=== PATIENT | female | born 1945 | race Caucasian/White ===

== ENCOUNTER 2023-04-12 08:24 | Day surgery (SDC) | payer MEDICARE ==
[2023-04-12] MEDS ORDERED: LIDOCAINE HCL 2% 100 MG/5 ML IJ ONE (08:25)
[2023-04-12] MEDS ORDERED: DIPRIVAN 200 MG/20 ML IV ONE (10:02)
--- NOTE | 2023-04-12 10:31 | XRAY ---
Indication: Right C2-C4 MBB. Intraoperative fluoroscopy provided for 10 seconds. 2 digital spot images submitted for interpretation demonstrate posterior needle tip projecting over the expected right C2-C4 nerve roots. Correlate with intraoperative findings/report.
--- NOTE | 2023-04-12 11:53 | XRAY ---
10 seconds of fluoroscopy was used in surgery for a right C2-C4 MBB.
[2023-04-12] MEDS ORDERED: Lactated Ringers 1,000 ML IV ONE (13:34)
== END 2023-04-12 10:22 | disposition home or self-care (01) ==
LOC: SDC-PAIN 08:24
PROVIDERS: ATTEND Psychiatry & Neurology Pain Medicine
DX: M47.812 Spondylosis without myelopathy or radiculopathy, cervical region (principal); E11.9 Type 2 diabetes mellitus without complications
CPT/HCPCS: 64490; 64491; 72040; 77002; 82947; J2704

== ENCOUNTER 2023-06-08 07:28 | Day surgery (SDC) | payer MEDICARE ==
[2023-06-08] MEDS ORDERED: XYLOCAINE 1% HCL 20 ML MDV IJ ONE (07:29)
[2023-06-08] MEDS ORDERED: BUPIVACAINE 0.5% VIAL IJ ONE (07:29)
[2023-06-08] MEDS ORDERED: Decadron 4 MG INJ IV ONE (07:29)
[2023-06-08] MEDS ORDERED: DIPRIVAN 200 MG/20 ML IV ONE (08:51)
[2023-06-08] MEDS ORDERED: Lactated Ringers 1,000 ML IV ONE (09:17)
--- NOTE | 2023-06-08 10:56 | XRAY ---
Indication: Right C2-C4 RFA. Intraoperative fluoroscopy provided for 21 seconds. 3 digital spot images submitted for interpretation demonstrates posterior needle tips projecting over the expected right C2-C4 nerve roots. Correlate with intraoperative findings/report.
--- NOTE | 2023-06-08 12:32 | XRAY ---
21 seconds of fluoroscopy was used in surgery for a right C2-C4 RFA.
== END 2023-06-08 09:55 | disposition home or self-care (01) ==
LOC: SDC-PAIN 07:28
PROVIDERS: ATTEND Psychiatry & Neurology Pain Medicine
DX: M47.812 Spondylosis without myelopathy or radiculopathy, cervical region (principal); E11.9 Type 2 diabetes mellitus without complications
CPT/HCPCS: 64633; 64634; 72040; 77002; 82947; J1100; J2704

== ENCOUNTER 2023-09-13 07:43 | Day surgery (SDC) | payer MEDICARE ==
[2023-09-13] MEDS ORDERED: LIDOCAINE HCL 2% 100 MG/5 ML IJ ONE (07:44)
[2023-09-13] MEDS ORDERED: DIPRIVAN 200 MG/20 ML IV ONE (09:42)
--- NOTE | 2023-09-13 12:02 | XRAY ---
Indication: Bilateral L4-S1 MBB. Intraoperative fluoroscopy provided for 17 seconds. Single digital spot image submitted for interpretation demonstrates posterior needle tips projecting over the expected left and right L4-S1 nerve roots. Correlate with intraoperative findings/report.
--- NOTE | 2023-09-13 12:08 | XRAY ---
17 seconds of fluoroscopy was used in surgery for a bilateral L4-S1 MBB.
[2023-09-13] MEDS ORDERED: Lactated Ringers 1,000 ML IV ONE (14:20)
== END 2023-09-13 10:15 | disposition home or self-care (01) ==
LOC: SDC-PAIN 07:43
PROVIDERS: ATTEND Psychiatry & Neurology Pain Medicine
DX: M47.816 Spondylosis without myelopathy or radiculopathy, lumbar region (principal); E11.9 Type 2 diabetes mellitus without complications; Z79.899 Other long term (current) drug therapy
CPT/HCPCS: 64493; 64494; 72020; 77002; 82947; J2704

== ENCOUNTER 2023-11-29 09:17 | Day surgery (SDC) | payer MEDICARE ==
[2023-11-29] MEDS ORDERED: BUPIVACAINE 0.5% VIAL IJ ONE (09:18)
[2023-11-29] MEDS ORDERED: Depo-Medrol 40 MG/ML IM ONE (09:18)
[2023-11-29] MEDS ORDERED: DIPRIVAN 200 MG/20 ML IV ONE (11:07)
[2023-11-29] MEDS ORDERED: Lactated Ringers 1,000 ML IV ONE (11:12)
--- NOTE | 2023-11-29 11:47 | XRAY ---
Indication: Bilateral L4-S1 MBB. Intraoperative fluoroscopy provided for 26 seconds. Single digital spot image submitted for interpretation demonstrates posterior needle tips projecting over expected left and right L4-S1 nerve roots. Correlate with intraoperative findings/report.
--- NOTE | 2023-11-29 12:20 | XRAY ---
26 seconds of fluoroscopy was used in surgery for a bilateral L4-S1 MBB.
== END 2023-11-29 11:40 | disposition home or self-care (01) ==
LOC: SDC-PAIN 09:17
PROVIDERS: ATTEND Psychiatry & Neurology Pain Medicine
DX: M47.816 Spondylosis without myelopathy or radiculopathy, lumbar region (principal); E11.9 Type 2 diabetes mellitus without complications
CPT/HCPCS: 64493; 64494; 72020; 77002; 82947; J1010; J2704; J1030

== ENCOUNTER 2024-09-18 07:51 | Day surgery (SDC) | payer MEDICARE ==
[2024-09-18] MEDS ORDERED: BUPIVACAINE 0.5% VIAL IJ ONE (07:52)
[2024-09-18] MEDS ORDERED: LIDOCAINE HCL 1% AMPUL 5 ML IJ ONE (07:52)
[2024-09-18] MEDS ORDERED: propofoL IV ONE (09:06)
--- NOTE | 2024-09-18 10:26 | XRAY ---
Indication: Right L4-S1 RFA. Intraoperative fluoroscopy provided for 20 seconds. 3 digital spot image submitted for interpretation demonstrates posterior needle tips projecting over expected right L4-S1 nerve roots. Correlate with intraoperative findings/report.
--- NOTE | 2024-09-18 11:01 | XRAY ---
20 seconds of fluoroscopy was used in surgery for a right L4-S1 RFA.
== END 2024-09-18 09:40 | disposition home or self-care (01) ==
LOC: SDC-PAIN 07:51
PROVIDERS: ATTEND Psychiatry & Neurology Pain Medicine
DX: M47.816 Spondylosis without myelopathy or radiculopathy, lumbar region (principal); E11.9 Type 2 diabetes mellitus without complications
CPT/HCPCS: 64635; 64636; 72100; 77002; 82947; 99100; J2704

== ENCOUNTER 2024-10-02 09:19 | Day surgery (SDC) | payer MEDICARE ==
[2024-10-02] MEDS ORDERED: LIDOCAINE HCL 1% AMPUL 5 ML IJ ONE (09:20)
[2024-10-02] MEDS ORDERED: BUPIVACAINE 0.5% VIAL IJ ONE (09:20)
[2024-10-02] MEDS ORDERED: Lactated Ringers 500 ML IV ONE (09:58)
[2024-10-02] MEDS ORDERED: propofoL IV ONE (11:10)
--- NOTE | 2024-10-02 11:55 | XRAY ---
Indication: Left L4-S1 RFA. Intraoperative fluoroscopy provided for 24 seconds. 4 digital spot image submitted for interpretation demonstrates posterior needle tips projecting over expected left L4-S1 nerve roots. Correlate with intraoperative findings/report.
--- NOTE | 2024-10-02 12:03 | XRAY ---
24 seconds of fluoroscopy was used in surgery for a left L4-S1 RFA.
== END 2024-10-02 11:55 | disposition home or self-care (01) ==
LOC: SDC-PAIN 09:19
PROVIDERS: ATTEND Psychiatry & Neurology Pain Medicine
DX: M47.817 Spondylosis without myelopathy or radiculopathy, lumbosacral region (principal); E11.9 Type 2 diabetes mellitus without complications
CPT/HCPCS: 64635; 64636; 72100; 77002; 82947; 99100; J2704